=== PATIENT | female | born 1955 | race Caucasian/White ===

== ENCOUNTER 2017-11-10 10:18 | Day surgery (SDC) | END 2017-11-10 12:55 | disposition home or self-care (01) ==

== ENCOUNTER 2019-02-16 15:30 | Inpatient (IN) | payer OTHER ==
[~2019-02-16] VITALS: Ht 162.6 cm; Wt 83.6 kg
[~2019-02-16 15:30] MED LIST: ALBU18HF INHALATION; ASPI81TA52 PO; BUDE6.9H INHALATION; GABA100C14 PO; KETO120S3 TOP; LORA0.5T PO; LOSA1TAB22 PO; MAG PO; MECL-77 PO; MELO7.5T38 PO; METO-319 PO; PANT40TA3 PO; SIMV10TA PO
[2019-02-25 19:05] VITALS: BMI 31.8
[2019-03-02] VITALS (24 sets, daily range): BP systolic 103–153; BP diastolic 58–101; PULSE 60–88; RESP 16–30; Ht 162.6 cm; Wt 83.6 kg
[2019-03-02] MEDS ORDERED: LACTATED RINGER'S 1,000 ML IV SCH (11:00)
--- NOTE | 2019-03-02 12:22 | HPN ---
Date/Time of Note Date/Time of Note DATE: 03/02/19 TIME: 12:22 Interval H&P Admission Note Pt. seen H&P reviewed: No system changes DANIEL RUIZ MD March 02, 2019 12:22
[2019-03-02] MEDS ORDERED: LIDOCAINE 1%/EPI (1:100,000) (MDV) 20 ML ONE (12:24)
[2019-03-02] MEDS ORDERED: VASOPRESSIN 20 UNITS INJ ONE (12:24)
[2019-03-02] MEDS ORDERED: SODIUM CL BACTERIOSTATIC 30 ML INJ ONE (12:25)
[2019-03-02] MEDS ORDERED: METHYLENE BLUE 50 MG/10 ML AMPUL ONE (12:25)
--- NOTE | 2019-03-02 12:41 | PREAC ---
Date/Time of Note Date/Time of Note DATE: 03/02/19 TIME: 12:40 Anesthesia Eval and Record Evaluation Time Pre-Procedure Interview DATE: 03/02/19 TIME: 12:40 Age 64 Sex female NPO: 8 hrs Preoperative diagnosis ovarian cyst Planned procedure laproscopic hysterectomy Past Medical History Past Medical History: Includes Cardio: HTN, Dyslipidemia Surgery & Anesthesia Issues No known issue Meds Anticoagulation: No Beta Ruby within 24 hr: Yes Reason Beta Ruby not given: Pt. not on B-Ruby Reported Medications Ketoconazole* (Ketoconazole*) 2% - 120 Ml Shampoo, 1 APPLIC TOP TWICE A WEEK, EA WASH HAIR/SCALP AND RINSE OFF 02/14/19 Mag Hydrox/Al Hydrox/Simeth (Mintox Plus Tablet Chewable) 1 Each Tab.chew, 1 EACH PO Q6 PRN for PRN, TAB.CHEW 02/14/19 Meclizine Hcl* (Meclizine Hcl*) 25 Mg Tablet, 25 MG PO Q8H PRN for DIZZINESS, TAB 02/14/19 Pantoprazole* (Protonix*) 40 Mg Tablet.dr, 40 MG PO DAILY, TAB 02/14/19 Budesonide-Formoterol Fumarate* (Symbicort*) 80-4.5 Mcg Hfa.aer.ad, 2 PUFF INHALATION BID, BOTTLE 02/14/19 Losartan-Hydrochlorothiazide (Losartan-HCTZ) 50-12.5 Mg Tab, 1 TAB PO DAILY, TAB 02/14/19 Lorazepam* (Lorazepam*) 0.5 Mg Tablet, 0.5 MG PO HS PRN for SLEEP, TAB 02/14/19 Meloxicam* (Meloxicam*) 7.5 Mg Tablet, 7.5 MG PO DAILY, #30 TAB 02/14/19 Albuterol Sulfate* (Ventolin HFA*) 18 Gm Hfa.aer.ad, 2 PUFF INHALATION Q4H, #1 INHALER 02/14/19 Metoprolol Succinate* (Toprol XL*) 50 Mg Tab.er.24h, 50 MG PO DAILY, #30 TAB 02/14/19 Simvastatin* (Zocor*) 10 Mg Tablet, 10 MG PO QHS, #30 TAB 02/14/19 Aspirin (Low Dose Aspirin) 81 Mg Tablet.dr, 81 MG PO DAILY, #30 TAB 02/14/19 Gabapentin* (Gabapentin*) 100 Mg Capsule, 200 MG PO QHS, #180 CAP 02/14/19 Current Medications Lactated Ringer's 1,000 ml @ 0 mls/hr Q0M IV Last administered on 03/02/19at 11:12; Admin Dose 0 MLS/HR; Start 03/02/19 at 11:00 Meds reviewed: Yes Allergies Coded Allergies: No Known Allergy (Unverified , 03/02/19) Allergies Reviewed: Yes Labs/Studies Labs Reviewed: Reviewed by anesthesiologist Blood Bank Test 03/02/19 10:30 Blood Type O NEGATIVE test: N/A Pre-procedure Exam Last vitals Vital Signs Date Temp Pulse Resp B/P (MAP) Pulse Ox O2 O2 Flow FiO2 Time Delivery Rate 03/02/19 98.4 88 16 125/76 96 Room Air 10:56 (92) Airway: Adequate mouth opening, Adequate thyromental dist Mallampati: Mallampati IV Teeth: Normal Lung: Normal Heart: Normal ASA Physical Status ASA physical status: 2 Emergency: None Pre-operative Attestations Prior to commencing anesthesia and surgery, the patient was re-evaluated, there was verification of: *The patient's identity *The results of appropriate recent lab work and preoperative vital signs *The above evaluation not changing prior to induction *Anesthetic plan, risk benefits, alternative and complications discussed with patient/family; questions answered; patient/family understands, accepts and wishes to proceed. TREVOR CHAVEZ DO March 02, 2019 12:41
[2019-03-02] MEDS ORDERED: morphine SULFATE/PF (10 MG/10 ML) INJ ONE (12:51)
[2019-03-02] MEDS ORDERED: MIDAZOLAM 1 MG/ML 2 ML INJ ONE (12:51)
[2019-03-02] MEDS ORDERED: NALOXONE (0.4 MG/ML) INJ IV PRN (14:30)
[2019-03-02] MEDS ORDERED: DIPHENHYDRAMINE 50 MG INJ IV PRN (14:30)
[2019-03-02] MEDS ORDERED: ZOLPIDEM 5 MG TAB PO PRN (14:30)
[2019-03-02] MEDS ORDERED: ONDANSETRON 4 MG INJ IV PRN ×3 (14:30→17:00)
[2019-03-02] MEDS ORDERED: HYDROmorphONE 0.5 MG/0.5 ML SYG IV PRN ×2 (14:30)
[2019-03-02] MEDS ORDERED: DEXAMETHASONE 4 MG/ML 5 ML INJ ONE (15:20)
[2019-03-02] MEDS ORDERED: ONDANSETRON 4 MG INJ ONE (15:20)
[2019-03-02] MEDS ORDERED: ETOMIDATE 20 MG INJ ONE (15:22)
[2019-03-02] MEDS ORDERED: ROCURONIUM 50 MG INJ ONE (15:22)
[2019-03-02] MEDS ORDERED: SUCCINYLCHOLINE CHLORIDE 100 MG/5 ML SYG IV ONE (15:22)
[2019-03-02] MEDS ORDERED: ROPIVACAINE 0.5 % 30 ML VIAL ONE (15:22)
[2019-03-02] MEDS ORDERED: LIDOCAINE 2% (SDV) 5 ML INJ ONE (15:22)
[2019-03-02] MEDS ORDERED: PHENYLephrine (100 MCG/ML) 10ML SYG ONE (15:22)
[2019-03-02] MEDS ORDERED: HYDROCODONE/APAP (5/325) TAB PO PRN (15:30)
[2019-03-02] MEDS ORDERED: ACETAMINOPHEN 325 MG TAB PO PRN (15:30)
[2019-03-02] MEDS ORDERED: METOCLOPRAMIDE 10 MG INJ IV PRN ×2 (15:30→17:00)
[2019-03-02] MEDS ORDERED: morphine 2 MG INJ IV PRN (15:30)
--- NOTE | 2019-03-02 15:33 | OPR ---
Date/Time of Note Date/Time of Note DATE: 03/02/19 TIME: 15:31 Operative Report Procedure Date: March 02, 2019 Preoperative Diagnosis ovarian mass, postmenopausal bleeding Postoperative Diagnosis Benign ovarian mass, benign endometrial mass Operation/Procedure Performed Total laparoscopic hysterectomy, right salpingo-oophrectomy Surgeon see signature line Screwdown Operator RHODA Miller Anesthesia Type: general Estimated Blood Loss: 10 - 50 ml's Transfusion none Specimen uterus, cervix, right tube and ovary Grafts/Implants none Complications none Pt Condition Post Procedure: stable Disposition: PACU Procedure Description Routine DANIEL RUIZ MD March 02, 2019 15:33
[2019-03-02] MEDS ORDERED: SUGAMMADEX SODIUM 200 MG/2 ML VIAL IV ONE (15:40)
--- NOTE | 2019-03-02 16:13 | PAC ---
Date/Time of Note Date/Time of Note DATE: 03/02/19 TIME: 16:12 Post-Anesthesia Notes Post-Anesthesia Note Last documented vital signs Vital Signs Date Temp Pulse Resp B/P (MAP) Pulse Ox O2 O2 Flow FiO2 Time Delivery Rate 03/02/19 97.8 90 16 120/63 96 Room Air 1612 Activity: WNL Respiratory function: WNL Cardiovascular function: WNL Mental status: Baseline Pain reasonably controlled: Yes Hydration appropriate: Yes Nausea/Vomiting absent: Yes TREVOR CHAVEZ DO March 02, 2019 16:13
[2019-03-02] MEDS: LACTATED RINGER'S 1,000 ML IV SCH (17:38)
--- NOTE | 2019-03-02 21:19 | OPR ---
DATE OF OPERATION: 03/02/2019 PREOPERATIVE DIAGNOSES: 1. A 6 cm pelvic mass. 2. Postmenopausal bleeding. 3. Prior history of left salpingo-oophorectomy. POSTOPERATIVE DIAGNOSES: 1. A 6 cm pelvic mass. 2. Postmenopausal bleeding. 3. Prior history of left salpingo-oophorectomy. 4. Benign uterine mass. 5. Benign right ovarian mass. PROCEDURE: Total laparoscopic hysterectomy with right salpingo-oophorectomy. SURGEON: Kay Evangelista MD PHOTO OPTICS TECHNICIAN: RHODA Morton. ANESTHESIA: General endotracheal and tap block. ANESTHESIOLOGIST: Dr. Matthieu Morris DO. ESTIMATED BLOOD LOSS: Less than 100 mL. INTRAOPERATIVE FINDING: The patient's left ovary is absent. There is a remnant of left fallopian tube on the left cornua region. Right ovary is about 6 cm. It is complex. Uterus is normal in size. Intraoperative evaluation by pathology revealed benign right ovarian mass. There is also benign fibroid in the endometrial cavity. No evidence of malignancy. HISTORY: This is a 64-year-old white female who has a prior history of left salpingo-oophorectomy. She is experiencing pelvic pain and her CT scan ultrasound showed a 6 cm right ovarian mass. Her CA-125 was normal. The patient has a stenotic cervix, and she does have postmenopausal bleeding. The patient was consented to undergo the above operation. DESCRIPTION OF PROCEDURE: She was taken to the OR after achievement of adequate anesthesia, placed in lithotomy position, prepped and draped in the usual sterile fashion. We started with the laparoscopy first. The patient has a prior open cholecystectomy scar on the right side and also has a Pfannenstiel scar. Supraumbilical incision was made using 11 blade. A 5 mm trocar was inserted. Pneumoperitoneum was established. I can see the pelvic structure quite well. The patient placed in steep Trendelenburg position. Three other trocars placed, one at 5 mm right lower quadrant and a 5 mm left lower quadrant. Findings are noted per above. The patient does have some adhesions on the right lower quadrant and this is taken down without difficulty. At this time, we got good visualization of the pelvic structure and findings as noted as per above. My plan will be to remove the right adnexa and from the uterus. I would then will proceed hysterectomy and remove the right adnexa transvaginally. With this, I went down below and I proceeded to dilate the cervix. The patient has a stenotic cervix. I was able to grasp the anterior lip of the cervix and I was able to dilate the cervix. Once it was dilated, I was able to place a small size V-care uterine manipulator. The vaginal pneumo- occluder was applied and good manipulation was obtained. Next, I then proceeded with hysterectomy. The right round ligament cauterized and transected. Right retroperitoneal space opened to the pericolic gutter. Right perirectal space opened, avascular space opened. Ureter dissected away. IP ligament was isolated and cauterized and transected using gyrus halo device. The left round ligament was taken in similar fashion. The patient's left ovary was taken. The left avascular space was opened. Left IP ligament was cauterized and transected. At this time, I then took the bladder flap down anteriorly down to pubocervical fascia. The patient has a prior history of as well. I take it down below the scar and take it down to the level of vagina. Next, I then proceeded to skeletonize the tissues surrounding the cervical cuff anteriorly and posteriorly, especially overlying the uterosacral ligament. Uterine vessel was then skeletonized, cauterized, cut, and rolled over the cervical cuff VQ device. At this time, entire cuff was well visualized 260 degree. I then used a gyrus bipolar J-hook to perform colpotomy. Once this was completed, I went down below. I removed the VCare device, grabbed the cervix and delivered the cervix and uterus vaginally. This is sent to pathology for evaluation. Next, I inserted a 15 mm Endopouch transvaginally. I deployed the bag and I captured the right adnexa into the pouch. I closed the pouch exteriorized vaginally and removed the entire right tube and ovary intact vaginally and sent to pathology for evaluation. At this time, I then place vaginal pneumo-occluder back in the vagina and pneumoperitoneum was reestablished. At this time, I then went back up to the abdomen and proceeded to close the vaginal cuff abdominally. At this time, I then proceeded to place a Stratafix 2-0 PDS suture into the pelvic area and then proceeded to close the vaginal cuff abdominally starting from left angle and all the way across to the right angle, incorporating full thickness of vagina. A right angle suture was cut, needle was removed. The midline vaginal cuff was further reinforced using CT 2-0 PDS suture. This was sutured intracorporeally and tied extracorporeally using a pusher x2. Both sutures were removed. At this time, pelvis thoroughly irrigated and all the pedicles hemostatic. Frozen section by pathology revealed a benign right ovarian mass and the endometrial cavity only has a benign fibroid, no evidence of malignancy. At this time, I was satisfied with the procedure. I then proceeded to close the suprapubic trocar fascia site using Endoclosure device. Once it was closed, the patient placed back in supine position. Pneumoperitoneum was released. Trocars removed. Trocar skin sites were then closed using Monocryl and Dermabond. At the end of the case, urine was clear in the Quinn bag and vaginal pneumo-occluder was removed. The patient was placed back in supine position, extubated and transferred to the recovery in stable condition. Dictated By: KAY MORALES/GLORIA Conf#: [id number] DID#: [id number] BRITTANY
[2019-03-03 01:57] VITALS: PULSE 71; RESP 18
[2019-03-03] MEDS: LACTATED RINGER'S 1,000 ML IV SCH ×2 (04:09→11:27)
[2019-03-03 07:11] VITALS: BP 110/73; PULSE 85; RESP 18
[2019-03-03] MEDS ORDERED: ONDANSETRON (ODT) 4 MG TAB ODT PRN (11:30)
[2019-03-03] MEDS ORDERED: DIPHENHYDRAMINE 25 MG CAP PO PRN (11:30)
--- NOTE | 2019-03-03 11:30 | DS ---
Date/Time of Note Date/Time of Note DATE: 03/03/19 TIME: 11:28 Discharge Summary Admission/Discharge Info Admit Date/Time March 02, 2019 at 09:50 Discharge Date/Time 03-03-19 Discharge Diagnosis Pelvci mass Patient Condition: Good Procedures Total laparoscopic hysterectomy, right salpingo-oophrectomy Hx of Present Illness Ovarian mass, postmenopausal bleeding. Hospital Course Advnace diet. If tolerated diet can be discharge. Home Meds Reported Medications Ketoconazole* (Ketoconazole*) 2% - 120 Ml Shampoo, 1 APPLIC TOP TWICE A WEEK, EA WASH HAIR/SCALP AND RINSE OFF 02/14/19 Mag Hydrox/Al Hydrox/Simeth (Mintox Plus Tablet Chewable) 1 Each Tab.chew, 1 EACH PO Q6 PRN for PRN, TAB.CHEW 02/14/19 Meclizine Hcl* (Meclizine Hcl*) 25 Mg Tablet, 25 MG PO Q8H PRN for DIZZINESS, TAB 02/14/19 Pantoprazole* (Protonix*) 40 Mg Tablet.dr, 40 MG PO DAILY, TAB 02/14/19 Budesonide-Formoterol Fumarate* (Symbicort*) 80-4.5 Mcg Hfa.aer.ad, 2 PUFF INHALATION BID, BOTTLE 02/14/19 Losartan-Hydrochlorothiazide (Losartan-HCTZ) 50-12.5 Mg Tab, 1 TAB PO DAILY, TAB 02/14/19 Lorazepam* (Lorazepam*) 0.5 Mg Tablet, 0.5 MG PO HS PRN for SLEEP, TAB 02/14/19 Meloxicam* (Meloxicam*) 7.5 Mg Tablet, 7.5 MG PO DAILY, #30 TAB 02/14/19 Albuterol Sulfate* (Ventolin HFA*) 18 Gm Hfa.aer.ad, 2 PUFF INHALATION Q4H, #1 INHALER 02/14/19 Metoprolol Succinate* (Toprol XL*) 50 Mg Tab.er.24h, 50 MG PO DAILY, #30 TAB 02/14/19 Simvastatin* (Zocor*) 10 Mg Tablet, 10 MG PO QHS, #30 TAB 02/14/19 Aspirin (Low Dose Aspirin) 81 Mg Tablet.dr, 81 MG PO DAILY, #30 TAB 02/14/19 Gabapentin* (Gabapentin*) 100 Mg Capsule, 200 MG PO QHS, #180 CAP 02/14/19 Follow-up Plan One week. Primary Care Provider Not On Staff Doctor Pending Labs Laboratory Tests Test 03/02/19 17:00 03/03/19 04:32 03/03/19 07:59 White Blood Count 6.7 7.1 10^3/ul (4.8-10.8) 10^3/ul (4.8-10.8) Red Blood Count 4.46 4.42 10^6/ul (4.20-5.40) 10^6/ul (4.20-5.40 ) Hemoglobin 12.4 12.5 g/dl (12.0-16.0) g/dl (12.0-16.0) Hematocrit 37.3 % (37.0-47.0) 37.6 % (37.0-47.0) Mean Corpuscular 83.6 85.1 Volume fl (82.0-101.0) fl (82.0-101.0) Mean Corpuscular 27.8 pg (29.0-33.0) 28.3 Hemoglobin pg (29.0-33.0) Mean Corpuscular 33.2 33.2 Hemoglobin Concent g/dl (32.0-37.0) g/dl (32.0-37.0) Red Cell 13.0 % (11.5-14.5) 12.8 % (11.5-14.5) Distribution Width Platelet Count 260 302 10^3/UL (140-415) 10^3/UL (140-415) Mean Platelet 11.1 fl (7.4-10.4) 11.4 fl (7.4-10.4) Volume Immature 0.400 0.100 Granulocytes % % (0.001-0.429) % (0.001-0.429) Neutrophils % 69.8 % (39.0-77.0) 86.6 % (39.0-77.0) Lymphocytes % 25.2 % (15.0-51.0) 9.1 % (15.0-51.0) Monocytes % 3.6 % (0.0-11.0) 4.2 % (0.0-11.0) Eosinophils % 0.7 % (0.0-7.0) 0.0 % (0.0-7.0) Basophils % 0.3 % (0.0-2.0) 0.0 % (0.0-2.0) Nucleated Red Blood 0.0 0.0 Cells % /100WBC (0.0-0.0) /100WBC (0.0-0.0) Immature 0.030 0.010 Granulocytes # 10^3/ul (0.0-0.031) 10^3/ul (0.0-0.031 ) Neutrophils # 4.7 6.2 10^3/ul (1.6-7.5) 10^3/ul (1.6-7.5) Lymphocytes # 1.7 0.7 10^3/ul (0.8-2.9) 10^3/ul (0.8-2.9) Monocytes # 0.2 0.3 10^3/ul (0.3-0.9) 10^3/ul (0.3-0.9) Eosinophils # 0.1 0.0 10^3/ul (0.0-0.5) 10^3/ul (0.0-0.5) Basophils # 0.0 0.0 10^3/ul (0.0-0.1) 10^3/ul (0.0-0.1) Nucleated Red Blood 0.0 0.0 Cells # 10^3/ul (0.0-0.0) 10^3/ul (0.0-0.0) Sodium Level 136 137 mmol/L (135-144) mmol/L (135-144) Potassium Level 3.1 4.0 mmol/L (3.5-5.1) mmol/L (3.5-5.1) Chloride Level 105 mmol/L (97-110) 101 mmol/L (97-110) Carbon Dioxide 23 mmol/L (21-31) 27 mmol/L (21-31) Level Anion Gap 8 (5-13) 9 (5-13) Blood Urea Nitrogen 9 mg/dl (7-20) 8 mg/dl (7-20) Creatinine 0.37 0.40 mg/dl (0.44-1.00) mg/dl (0.44-1.00) Est Glomerular > 60 mL/min (>60) > 60 mL/min (>60) Filtrat Rate mL/min Glucose Level 158 mg/dl (70-220) 130 mg/dl (70-220) Calcium Level 8.6 9.0 mg/dl (8.4-10.2) mg/dl (8.4-10.2) Lab Scanned Report [facility] [id number] Microbiology Date/Time Source Procedure Growth Status 03/02/19 16:08 Quinn Catheter Urine Culture - Preliminary NO GROWTH Resulted AFTER 24 HOURS DANIEL RUIZ MD March 03, 2019 11:30
--- NOTE | 2019-03-03 11:31 | PD.PPDC ---
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
== END 2019-03-03 15:20 | disposition home or self-care (01) | DRG 983 ==
LOC: REC 03-02 09:50 → MS1 03-02 17:46
PROVIDERS: ADMIT Obstetrics & Gynecology Gynecologic Oncology; ATTEND Obstetrics & Gynecology Gynecologic Oncology
PROC: 0UT04ZZ Resection of Right Ovary, Percutaneous Endoscopic Approach (ICD-10-PCS; 2019-03-02)
PROC: 0UT54ZZ Resection of Right Fallopian Tube, Percutaneous Endoscopic Approach (ICD-10-PCS; 2019-03-02)
PROC: 0UT94ZZ Resection of Uterus, Percutaneous Endoscopic Approach (ICD-10-PCS; principal; 2019-03-02 12:00)
DX: R19.00 Intra-abdominal and pelvic swelling, mass and lump, unspecified site (principal); N95.0 Postmenopausal bleeding; N85.9 Noninflammatory disorder of uterus, unspecified; N83.9 Noninflammatory disorder of ovary, fallopian tube and broad ligament, unspecified; E78.5 Hyperlipidemia, unspecified; I10 Essential (primary) hypertension
CPT/HCPCS: 80048; 85025; 86850; 86870; 86900; 86901; 87086; 88307; 88331; J1100; J1200; J2250; J2274; J2370; J2405; J2765; J2795; J3010; J7120; Q9968